=== PATIENT | male | born 1945 | race Caucasian/White ===

== ENCOUNTER 2017-04-07 18:12 | Emergency (ER) | payer MEDICARE ==
--- NOTE | ~2017-04-07 | CR72 ---
[facility] A Service of [facility] & [facility] RADIOLOGY TEXT RESULTS PATIENT: ALE SEGUNDO LOCATION: SED : 45 UNIT #: [id number] AGE: [address]: Josh Gonzalez MD SEX: M ORDER DR: [id number] [place] [id number] E MR#: [id number] Acc #: [id number] NAME: ALE SEGUNDO : 1945 SEX: M STUDY DATE/TIME: 04/07/2017 19:13 UNIT: SED ROOM: STUDY DESCRIPTION: CR Chest Single View Portable Attending Physician: Josh Gonzalez M.D. Ordering Physician: Harish Milian M.D. Primary Care Physician: Danilo Chawla M.D. MEDICAL IMAGING REPORT This report is preliminary unless electronic signature is present. EXAM Portable chest HISTORY Generalized weakness and leg weakness today. FINDINGS Mild hyperinflation of both lungs with probable bilateral emphysema. No airspace infiltrates, or pleural effusions are identified. Mild right lower thoracic curve. Small calcified granuloma in the left lower lung. IMPRESSION No acute findings. No active disease. Dictated by... Rafi Flanagan M.D. THIS IS AN ELECTRONICALLY VERIFIED REPORT Rafi Flanagan M.D. at 04/08/2017 11:42 AM DFL/marlin TD: 04/07/2017 23:21 JOB #: [id number] MEDICAL IMAGING REPORT Page 1 of 1
--- NOTE | ~2017-04-07 | EKG ---
PATIENT: ALE SEGUNDO UNIT #: [id number] Ventricular Rate: 50 BPM Atrial Rate: 50 BPM P-R Interval: 350 ms QRS Duration: 84 ms Q-T Interval: 458 ms QTC Calculation(Bezet): 417 ms P Wharncliffe: 90 degrees Calculated R Wharncliffe: 23 degrees Calculated T Wharncliffe: -4 degrees Diagnosis Line: Sinus bradycardia with 1st degree A-V block Diagnosis Line: Nonspecific ST and T wave abnormality Diagnosis Line: Abnormal ECG Diagnosis Line: When compared with ECG of 17-DEC-2015 14:23, Diagnosis Line: No significant change was found Diagnosis Line: Confirmed by SACHA TO MD ([id number]) on Diagnosis Line: 04/19/2017 8:26:36 AM INTERPRETING MD: YOUSUF WARNER
--- NOTE | ~2017-04-07 | CT23 ---
[facility] A Service of [facility] & [facility] RADIOLOGY TEXT RESULTS PATIENT: ALE SEGUNDO LOCATION: SED : 45 UNIT #: [id number] AGE: [address]: Josh Gonzalez MD SEX: M ORDER DR: [id number] [place] [address] [id number] E MR#: [id number] Acc #: [id number] NAME: ALE SEGUNDO : 1945 SEX: M STUDY DATE/TIME: 04/07/2017 19:24 UNIT: SED ROOM: STUDY DESCRIPTION: CT Angio Neck Attending Physician: Josh Gonzalez M.D. Ordering Physician: Harish Milian M.D. Primary Care Physician: Danilo Chawla M.D. MEDICAL IMAGING REPORT This report is preliminary unless electronic signature is present. EXAM CTA of the neck Please see CTA of the head for results. Dictated by... Preston Naik M.D. THIS IS AN ELECTRONICALLY VERIFIED REPORT Preston Naik M.D. at 04/10/2017 5:07 PM CPR/rnr TD: 04/08/2017 00:05 JOB #: [id number] MEDICAL IMAGING REPORT Page 1 of 1
--- NOTE | ~2017-04-07 | CT71 ---
[facility] A Service of [facility] / [facility] RADIOLOGY TEXT RESULTS PATIENT: ALE SEGUNDO LOCATION: SED : [birth year] UNIT #: [id number] AGE: [address]: Josh Gonzalez MD SEX: M ORDER DR: [id number] [place] [address] [id number] E MR#: [id number] Acc #: [id number] NAME: ALE SEGUNDO : 1945 SEX: M STUDY DATE/TIME: 04/07/2017 19:17 UNIT: SED ROOM: STUDY DESCRIPTION: CT Head Wo Contrast Attending Physician: Josh Gonzalez M.D. Ordering Physician: Harish Milian M.D. Primary Care Physician: Danilo Chawla M.D. MEDICAL IMAGING REPORT This report is preliminary unless electronic signature is present. EXAM CT brain without contrast. HISTORY Generalized weakness and leg weakness today. TECHNIQUE This CT exam was performed with one or more of the following radiation dose reduction techniques: automatic exposure control, adjustment of mA and/or kV according to patient size, and iterative reconstruction. FINDINGS CT brain without contrast demonstrates mild chronic ischemic changes in the periventricular white matter bilaterally and mild generalized cerebral and cerebellar cortical atrophy. No intracranial hemorrhage, mass or edema. No midline shift or focal atrophy or extraaxial fluid collection. Opacification of inferior left mastoid air cells. IMPRESSION No acute findings. Mild chronic ischemic changes in the deep white matter bilaterally and mild generalized cerebral and cerebellar cortical atrophy. Dictated by... Rafi Flanagan M.D. THIS IS AN ELECTRONICALLY VERIFIED REPORT Rafi Flanagan M.D. at 04/08/2017 11:41 AM GALLITO/zuly TD: 04/07/2017 23:12 [facility] A Service of [facility] / [facility] RADIOLOGY TEXT RESULTS PATIENT: ALE SEGUNDO LOCATION: SED : 45 UNIT #: [id number] AGE: [address]: Johs Gonzalez MD SEX: M ORDER DR: JOB #: [id number] MEDICAL IMAGING REPORT Page 1 of 1
--- NOTE | ~2017-04-07 | CT17 ---
[facility] A Service of [facility] & [facility] RADIOLOGY TEXT RESULTS PATIENT: ALE SEGUNDO LOCATION: SED : 45 UNIT #: [id number] AGE: [address]: Josh Gonzalez MD SEX: M ORDER DR: [id number] [place] [id number] E MR#: [id number] Acc #: [id number] NAME: ALE SEGUNDO : 1945 SEX: M STUDY DATE/TIME: 04/07/2017 19:24 UNIT: SED ROOM: STUDY DESCRIPTION: CT Angio Head Attending Physician: Josh Gonzalez M.D. Ordering Physician: Harish Milian M.D. Primary Care Physician: Danilo Chawla M.D. MEDICAL IMAGING REPORT This report is preliminary unless electronic signature is present. EXAM CT angiogram of the head and neck with contrast dated 04/07/2017. COMPARISON CT head without contrast dated 04/07/2017, CT angiogram head and neck with contrast dated 01/17/2014, MRA neck with and without contrast dated 01/17/2014. HISTORY Left carotid repair on Monday, 4 days ago at [facility]. Patient now has a leg weakness and stumbling. FINDINGS CT angiogram of the head and neck was obtained with IV contrast in the axial plane followed by reformats of the lumbee of Theodore in 3 planes, 3-D tumbling MIP images, curved reformats of bilateral carotid and vertebral arteries. MCA snapshots surface rendered images were also obtained and given as per the protocol. This CT exam was performed with one or more of the following radiation dose reduction techniques: automatic control, adjustment of mA and/or kV according to patient size, and iterative reconstruction. 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 Visualized bilateral common carotid arteries demonstrate slightly decreased caliber of the left common carotid artery when compared to the right, probably congenital. Those plaques are noted in the origin, there is non severe stenosis with the distal flow limitation. Mild atherosclerotic plaque is also noted in bilateral common carotid arteries along the course without significant stenosis. There is stent extending from the distal left common carotid artery to the internal carotid artery with contrast extending through the bore of the stent suggestive of its patency. The left internal carotid artery is of smaller caliber when compared to the right. There are STS. [facility] A Service of [facility] & [facility] RADIOLOGY TEXT RESULTS PATIENT: ALE SEGUNDO LOCATION: [facility] [place] : [birth year] UNIT #: [id number] AGE: [address]: Josh Gonzalez MD SEX: M ORDER DR: atherosclerotic plaques noted in the right lower carotid artery origin measuring about 40-50% focal short segment of stenosis. Bilateral external carotid arteries do not demonstrate any severe stenosis. Mild plaque is seen in the distal left REPRODUCTIVE ENDOCRINOLOGIST involving one of its bifurcations. The right vertebral artery is dominant and it demonstrates expected flow and course. The left vertebral artery is not well seen from the level of C7 to the level of C2. There is mild decrease in flow noted as the left vertebral artery extends from its origin towards the left C7 transverse foramen. Tiny amount of flow is noted in the left C2 transverse foramen and it slightly increases in caliber as it exits the transverse foramen to enter intradurally. Once it enters intradurally further decreases in caliber. There is mild to moderate stenosis of the origin of the left subclavian artery due to calcified and noncalcified plaque. It is noted proximal to the origin of the left vertebral artery. HEAD: Bilateral intracranial internal carotid arteries demonstrate decrease in caliber of the left internal carotid artery throughout its course. A1 segment of the left KYLEE is not seen. Right anterior cerebral artery demonstrate no significant abnormality. ACOM crosses from the right KYLEE to the left A2 with symmetrical bilateral A2. The left middle cerebral artery demonstrates mild decrease in caliber of its branches arising from the left MCA bifurcation. No significant distal flow compromise is seen. Well-defined becomes are not seen. Basilar artery, right posterior cerebral arteries, proximal bilateral superior cerebellar arteries are unremarkable. There is focal short segment of moderate to severe stenosis involving the left posterior cerebral artery in the presumed P2 P3 junction and extending to the adjacent P2 segment, relatively stable in the last 3 years. There is no significant compromise in the distal flow though mild decrease cannot be excluded. Right vertebral artery is dominant. The left vertebral artery demonstrates decrease in caliber as it enters intradurally and further the left PICA arises from it. No obvious aneurysm or AVM is seen. Dural venous sinuses are patent without filling defects to suggest thrombosis. EXTRAVASCULAR SOFT TISSUES: Significant degenerative changes are noted at multiple levels of the cervical spine involving the discs and the facets causing varying degrees of canal stenosis and neural foraminal narrowing. There is some loss of normal fat plane in the left carotid sheath, particularly in this patient with stent/graft of the proximal left internal carotid artery. Correlate with operative note. It is new since previous study in 2014. There appears to be flow within the postoperative site though it is focally significantly narrow involving a very short segment and the grafted/stented portion (series 8, image 108). IMPRESSION: Scattered mild atherosclerotic disease is noted in multiple vessels of the neck and head as described above. [facility] A Service of [facility] RADIOLOGY TEXT RESULTS PATIENT: ALE SEGUNDO LOCATION: [facility] [place] : [birth year] UNIT #: [id number] AGE: [address]: Josh Gonzalez MD SEX: M ORDER DR: The left vertebral artery is not well seen from the level of C2 to the level of C7 in the transverse foramen. There is some flow noted distally and proximally. It could be related to long segment of stenosis or dissection. This appearance has not significantly changed when compared to the prior study. A congenital appearance is next in the differential consideration as described in the report. The left vertebral artery demonstrates 3.5 mm transverse dimension at the level of C2 as it curves to enter the dura. It immediately decreases in caliber as it extends to the vertebrobasilar junction. It could be related to tandem mild areas of stenosis as it extends to the vertebrobasilar junction and part of it could also be related to decrease in caliber after the takeoff of the left PICA. There is decrease in caliber of the left internal carotid artery in the neck and head without any focal superimposed severe tandem stenosis. There is focal short segment of moderate to severe stenosis involving the left posterior cerebral artery in the presumed P2 P3 junction and extending to the adjacent P2 segment, relatively stable in the last 3 years. There is no significant compromise in the distal flow though mild decrease cannot be excluded. There is about 40% to 50% focal short segment of stenosis of the proximal portion and origin of the right internal carotid artery in the neck, per NASCET criteria. Suspicious mild narrowing of the branch vessel arising from the left MCA at the bifurcation is seen, without any significant distal flow compromise. Attempts are made to contact Dr. Harish Milian at 09:15 p.m. on 04/07/2017. Dictated by... Preston Naik M.D. THIS IS AN ELECTRONICALLY VERIFIED REPORT Preston Naik M.D. at 04/11/2017 9:16 PM CPR/rnr TD: 04/08/2017 00:04 JOB #: [id number] MEDICAL IMAGING REPORT Page 1 of 1
[~2017-04-07 18:12] MED LIST: ALB/IPRATROPIUM/1 E1 INH; ALPHAGAN P10 ML OP; ASPIRIN81 M1 PO; ASPIRIN81 MG PO; DYNACIN100 MG PO; FORADIL12 MCG NEB; HYDRALAZINE HCL50 MG PO; IPRAT-ALBUT 0.5-3 ML IH; KEPPRA500 MG PO; LIPITOR PO; LIPITOR20 MG PO; LORTAB 5/500 TA1 TA1 PO; METOPROLOL SUCC25 MG PO; METOPROLOL TART25 MG PO; METROGEL60 GM TP; MINOCYCLINE HC100 M1 PO; NORVASC PO; OMEPRAZOLE20 M1 PO; OMEPRAZOLE20 M2; OMNICEF300 M1 PO; PREDNISONE PO; PREDNISONE10 MG/DOSE; PREDNISONE10 MG/DOSE PO; PRINIVIL10 MG PO; PROVENT1 EACH INH; PROVENTIL17 GM IH; SERTRALINE HCL100 MG PO; SPIRIVA18 MCG INH; SYMBICORT INH; THEO-DUR200 MG PO; THEOPHYLLINE400 MG PO; VIBRAMYCIN100 M1 PO; XALATAN OD; XALATAN OP; ZESTRIL40 MG PO
[2017-04-07] MEDS ORDERED: ALBUTEROL2.5 MG/3 M INH (18:22)
[2017-04-07] MEDS ORDERED: ALBUTEROL17 GM INH (18:23)
[2017-04-07] MEDS ORDERED: NORVASC10 MG PO (18:23)
[2017-04-07] MEDS ORDERED: LIPITOR20 MG PO (18:25)
[2017-04-07] MEDS ORDERED: ASPIRIN81 M2 PO (18:25)
[2017-04-07] MEDS ORDERED: TRUSOPT10 ML OU (18:26)
[2017-04-07] MEDS ORDERED: DOXYCYCLINE HY100 M3 PO (18:26)
[2017-04-07] MEDS ORDERED: CLOPIDOGREL75 MG PO (18:26)
[2017-04-07] MEDS ORDERED: ZESTRIL40 MG PO (18:27)
[2017-04-07] MEDS ORDERED: TOPROL XL PO (18:27)
[2017-04-07] MEDS ORDERED: CLARITIN10 M2 PO (18:27)
[2017-04-07] MEDS ORDERED: METROGEL60 GM TOP (18:28)
[2017-04-07] MEDS ORDERED: ZOLOFT100 MG PO (18:28)
[2017-04-07] MEDS ORDERED: SYMBICORT INH (18:28)
[2017-04-07] MEDS ORDERED: TRAVATAN Z5 ML OU (18:29)
[2017-04-07] MEDS ORDERED: SPIRIVA18 MCG INH (18:29)
[2017-04-07 18:50] LABS: BASOPHIL% 0.3 % (0-2.5); DIFF IND NO; EOSINOPHIL# 0.4 X10e3 (0-0.7); EOSINOPHIL% 4.6 % (0.0-7.0); HEMATOCRIT 39.8 % (38.0-50.0); HEMOGLOBIN 13.4 gm/dL (13.0-16.0); LYMPHOCYTE# 1.7 X10e3 (1.0-3.5); LYMPHOCYTE% 21.7 % (17.0-45.0); MEAN CELL VOLUME 89.1 FL (83-96); MEAN CORPUSCULAR HGB CONC 33.7 g/dL (30-36); MEAN PLATELET VOLUME 9.6 FL (6.5-11.5); MONOCYTE# 0.7 X10e3 (0-1.0); MONOCYTE% 9.3 % (3.0-12.0); NEUTROPHIL# 4.9 X10e3 (1.5-7.1); NEUTROPHIL% 64.1 % (40-75); PLATELET COUNT 135 X10e3 (140-420); RED BLOOD COUNT 4.47 X10e (3.90-5.60); RED CELL DISTRIBUTION WIDTH 14.2 % (11.0-15.5); WHITE BLOOD COUNT 7.6 X10e3 (4.0-10.5)
[2017-04-07 19:02] LABS: POC - CKMB 2.6 ng/mL (0.0-7.9); POC - TROPONIN <0.05 ng/mL (<=0.05)
[2017-04-07 19:06] LABS: BILIRUBIN, DIRECT 0.2 mg/dL (0.0-0.2); BILIRUBIN,INDIRECT 0.7 mg/dL (0.0-0.9); BILIRUBIN,TOTAL 0.9 mg/dL (0.2-2.0); BUN/CREATININE RATIO 27.77; CREATININE SERUM 0.9 mg/dL (0.6-1.4); POTASSIUM 3.9 mmol/L (3.5-5.1); PROTEIN TOTAL SERUM 6.7 g/dL (6.0-8.3)
[2017-04-07 19:26] LABS: PROTHROMBIN TIME (PATIENT) 11.6 SECONDS (9.5-12.4)
[2017-04-07 19:44] LABS: URINE SOURCE CLEAN CATCH
[2017-04-07 19:46] LABS: URINE APPEARANCE CLEAR; URINE BILIRUBIN NEG (NEG); URINE BLOOD TRACE-INTACT (NEG); URINE COLOR YELLOW; URINE GLUCOSE NEG (NORM); URINE KETONE NEG (NEG); URINE LEUKOCYTE ESTERASE NEG (NEG); URINE NITRATE NEG (NEG); URINE PH 5.5 (5-8); URINE PROTEIN NEG (NEG); URINE UROBILINOGEN 0.2 MG/DL (NORM)
[2017-04-07 19:47] LABS: MICRO INDICATED? YES
[2017-04-07 19:52] LABS: CULTURE INDICATED? NO; URINE BACTERIA NEG (NEG); URINE SQUAMOUS EPITHELIAL CELL OCCAS /[HPF]; URINE WBC 0-2 /[HPF] (0-5)
[2017-04-07 20:36] LABS: POC - CKMB 1.5 ng/mL (0.0-7.9); POC - TROPONIN <0.05 ng/mL (<=0.05)
== END 2017-04-08 00:51 ==
LOC: SED 18:12
PROVIDERS: Emergency Medicine
DX: I63.00 Cerebral infarction due to thrombosis of unspecified precerebral artery (principal)
CPT/HCPCS: 36415; 70450; 70496; 70498; 71010; 80048; 80076; 81003; 82553; 84484; 85025; 85610; 85730; 93005; 99285; Q9967